=== PATIENT | male | born 1990 | race Caucasian/White ===

== ENCOUNTER 2023-05-15 20:05 | Emergency (ER) | payer MEDICAID ==
[~2023-05-15] VITALS: Ht 172.7 cm; Wt 81.6 kg
[2023-05-15 20:05] VITALS: BP 144/102; PULSE 102; RESP 19; TEMP 98.5; O2SAT 100
[2023-05-15 20:38] VITALS: O2SAT 100
[2023-05-15 21:44] LABS: BASOPHILS % (AUTO) 0.6 % (0.0-2.0); EOSINOPHILS # (AUTO) 0.2 K/uL (0-0.4); EOSINOPHILS % (AUTO) 2.1 % (0.0-4.0); HEMATOCRIT 36.5 % (36-52); HEMOGLOBIN 12.4 g/dL (12.0-18.0); LYMPHOCYTES # (AUTO) 2.1 K/uL (2.0-11.5); LYMPHOCYTES % (AUTO) 27.8 % (20.5-51.1); MEAN CORPUSCULAR HEMOGLOBIN 30 pg (27-31); MEAN CORPUSCULAR HGB CONC 34 g/dL (33-37); MEAN CORPUSCULAR VOLUME 89.4 fL (80-94); MONOCYTES # (AUTO) 0.7 K/uL (0.8-1.0); MONOCYTES % (AUTO) 8.8 % (1.7-9.3); NEUTROPHILS # (AUTO) 4.6 K/uL (1.8-7.7); NEUTROPHILS % (AUTO) 60.7 % (42.2-75.2); PLATELET COUNT (AUTO) 247 K/uL (140-450); RED BLOOD CELL COUNT(AUTO) 4.08 MIL/uL (4.20-6.10); RED CELL DISTRIBUTION WIDTH 14.4 % (11.6-13.7); WHITE BLOOD COUNT (AUTO) 7.6 K/uL (4.8-10.8)
[2023-05-15 22:00] LABS: ANION GAP 11.2 (8-16); CALCIUM 8.3 mg/dL (8.5-10.1); CREATININE 0.9 mg/dL (0.6-1.3); POTASSIUM 4.2 mmol/L (3.5-5.1)
[2023-05-15 22:09] LABS: ALCOHOL, BLOOD < 3 mg/dL (<10)
[2023-05-15 22:13] LABS: ACETAMINOPHEN < 0.5 ug/ml (10-30); SALICYLATE < 2.8 mg/dL (2.8-20.0)
[2023-05-15 22:14] LABS: INR 0.88 (0.8-1.2); PARTIAL THROMBOPLASTIN TIME 26.5 secs (22-35.6); PROTHROMBIN TIME 9.3 secs (10.8-13.4)
[2023-05-15] MEDS ORDERED: QUEtiapine FUMARATE 25 MG TAB PO ONE (23:35)
[2023-05-15] MEDS ORDERED: LORazepam 1 MG TAB PO ONE (23:35)
[2023-05-16 00:28] VITALS: O2SAT 100
[2023-05-16 00:49] LABS: AMPHETAMINE, URINE POSITIVE ng/ml (NEG <=1000); BARBITURATE, URINE NEGATIVE ng/ml (NEG <=200); BENZODIAZEPINE, URINE NEGATIVE ng/mL (NEG <=200); CANNABINOID, URINE POSITIVE ng/mL (NEG <=50); COCAINE, URINE NEGATIVE ng/mL (NEG <=300); OPIATE, URINE NEGATIVE ng/mL (NEG <=2000); PHENCYCLIDINE SCREEN,URINE NEGATIVE ng/mL (NEG <=25)
[2023-05-16 04:29] VITALS: O2SAT 100
[2023-05-16 07:30] VITALS: TEMP 98.5
[2023-05-16 07:40] VITALS: O2SAT 100
[2023-05-16 13:38] VITALS: BP 122/68; PULSE 74; RESP 17; O2SAT 98
== END 2023-05-16 13:38 | disposition home or self-care (01) ==
LOC: MED 20:05
DX: R45.851 Suicidal ideations (principal); R07.9 Chest pain, unspecified; F19.10 Other psychoactive substance abuse, uncomplicated; F20.9 Schizophrenia, unspecified; R00.0 Tachycardia, unspecified; F15.90 Other stimulant use, unspecified, uncomplicated; Z88.8 Allergy status to other drugs, medicaments and biological substances
CPT/HCPCS: 36415; 71045; 80048; 80305; 83880; 84484; 85025; 85610; 85730; 93005; 99285; G0480; G0482